=== PATIENT | male | born 1970 | race Caucasian/White ===

== ENCOUNTER 2022-05-26 15:55 | Emergency (ER) | payer SELFPAY ==
[~2022-05-26] VITALS: Ht 165.1 cm; Wt 68.0 kg
--- NOTE | 2022-05-26 16:40 | NUR ---
AKHIL Cummins PT STATED HE FELL DOWN, LOST HIS BALANCE, HE ADMITTED HE HAS BEEN DRINKING AND HAD TWO HURRICANES, HIS APPETITE HAS BEEN POOR.
--- NOTE | 2022-05-26 16:50 | NUR ---
THE PATIENT IS TAKEN TO CT VIA [facility]
[2022-05-26] MEDS ORDERED: TDAP [DIPH/PERTUSSIS/TET] 0.5 ML VIAL IM ONE ×2 (16:54→17:00)
[2022-05-26 19:34] VITALS: BP 130/90
--- NOTE | 2022-05-26 19:34 | NUR ---
Patient discharged to home in stable condition. Written and verbal after care instructions given. Patient verbalizes understanding of instruction.
== END 2022-05-26 19:34 | disposition home or self-care (01) ==
LOC: ER 15:59
DX: S00.01XA Abrasion of scalp, initial encounter (principal); S09.90XA Unspecified injury of head, initial encounter; W01.10XA Fall on same level from slipping, tripping and stumbling with subsequent striking against unspecified object, initial encounter; Y93.89 Activity, other specified; Y92.89 Other specified places as the place of occurrence of the external cause; Y99.8 Other external cause status
CPT/HCPCS: 70450-TC; 72125-TC; 90715

== ENCOUNTER 2023-09-22 06:05 | Inpatient (IN) | payer OTHER ==
[2023-09-22] VITALS (9 sets, daily range): O2SAT 92–100
[~2023-09-22] VITALS: Ht 165.1 cm; Wt 50.4 kg
[2023-09-22] MEDS ORDERED: CEFEPIME 1 GM in IV D5W 50 ML IV ONE (06:30)
[2023-09-22] MEDS ORDERED: IV NS 0.9% 1,000 ML BAG IV ONE (06:30)
[2023-09-22] MEDS ORDERED: ACETAMINOPHEN ES 500 MG TABLET GT ONE (06:30)
[2023-09-22] MEDS ORDERED: ACETAMINOPHEN ES 500 MG TABLET ONE (06:37)
[2023-09-22] MEDS ORDERED: VANCOMYCIN 1 GM /D5W 250 ML PB IV ONE (06:37)
[2023-09-22] MEDS ORDERED: CEFEPIME 1 GM VIAL ONE (06:37)
[2023-09-22] MEDS: VANCOMYCIN 1 GM in IV D5W 250 ML IV ONE ×2 (06:58→07:25)
[2023-09-22 07:05] LABS: APPEARANCE,URINE TURBID (CLEAR); BILIRUBIN,URINE NEGATIVE (NEGATIVE); BLOOD, URINE TRACE-INTA Ery/uL (NEGATIVE); COLOR,URINE DARK YELLOW (YELLOW); KETONES,URINE NEGATIVE (NEGATIVE); LEUKOCYTE ESTERASE ,URINE 2+ (NEGATIVE); NITRITE, URINE NEGATIVE (NEGATIVE); PROTEIN,URINE 2+ mg/dl (NEGATIVE); UGLUCOSE NEGATIVE (NEGATIVE)
[2023-09-22 07:07] LABS: BASOPHILS # (AUTO) 0.1 K/uL (0.0-0.2); BASOPHILS % (AUTO) 0.6 % (0.0-2.0); EOSINOPHILS % (AUTO) 0.1 % (0.0-6.0); HEMATOCRIT 28 % (39-51); HEMOGLOBIN 9.4 g/dL (13.5-17.5); LYMPHOCYTES # (AUTO) 1.7 K/uL (0.8-4.8); MEAN CORPUSCULAR HEMOGLOBIN 31 PG (26.0-33.0); MEAN CORPUSCULAR HGB CONC 33 g/dl (31.0-36.0); MEAN CORPUSCULAR VOLUME 94 fL (80-96); MONOCYTES # (AUTO) 1.6 K/uL (0.1-1.30); MONOCYTES % (AUTO) 8.7 % (2.0-12.0); NEUTROPHILS # (AUTO) 15.1 K/uL (1.8-8.9); NEUTROPHILS % (AUTO) 81.6 % (43.0-81.0); PLATELET COUNT (AUTO) 385 K/uL (150-450); RED BLOOD CELL COUNT(AUTO) 3.04 MIL/uL (4.5-6.0); RED CELL DISTRIBUTION WIDTH 17.2 % (11.5-15.0); WHITE BLOOD COUNT (AUTO) 18.6 K/uL (4.3-11.0)
[2023-09-22 07:10] LABS: CALCIUM, SERUM 8.5 mg/dL (8.5-10.1); CARBON DIOXIDE 22 mmol/L (21-32); CHLORIDE 99 mmol/L (98-107); CREATININE 0.8 mg/dL (0.6-1.3); GLUCOSE 132 mg/dL (74-106); POTASSIUM 3.8 mmol/L (3.5-5.1); SODIUM SERUM 129 mmol/L (136-145); UREA NITROGEN, BLOOD 14 mg/dL (7-18)
[2023-09-22 07:14] LABS: ADD URINE CULTURE YES; BACTERIA,URINE Few /HPF (None Seen); INR 1.51 (0.91-1.10); PARTIAL THROMBOPLASTIN TIME 37.4 SEC (24.3-34.3); PROTHROMBIN TIME 15.6 SECS (9.2-11.1); SQUAMOUS EPITHELIAL CELL,UR Rare /HPF (None Seen); WBC,URINE 21-50 /HPF (0-3)
[2023-09-22 07:17] LABS: ALANINE AMINOTRANSFERASE 23 U/L (12-78); ALBUMIN 1.6 g/dL (3.4-5.0); ALKALINE PHOSPHATASE 112 U/L (46-116); ASPARTATE AMINOTRANSFERASE 51 U/L (15-37); BILIRUBIN,DIRECT 0.2 mg/dL (0.0-0.2); BILIRUBIN,TOTAL 0.3 mg/dL (0.2-1.0); TOTAL PROTEIN, SERUM 8.2 g/dL (6.4-8.2)
[2023-09-22 07:28] LABS: LACTIC ACID 2.4 mmol/L (0.4-2.0)
[2023-09-22 07:41] LABS: ABG BASE EXCESS -5.1 mmol/L; ABG OXYGEN SATURATION 91.6 % (92.0-98.5); ABG PH 7.453 (7.350-7.450); ABG PO2 67.2 mmHg (75.0-100.0); ABG TOTAL HEMOGLOBIN 9.3 G/dL (13.5-18.0); COHb 0.2 % (0.5-1.5); MetHb 0.4 % (0.0-1.5); O2Hb 91.1 % (94.0-97.0); SITE, ABG Right Radial; VENT MODE, BG 15L NRB
[2023-09-22] MEDS ORDERED: IOHEXOL-350 100 ML VIAL IV ONE (07:48)
[2023-09-22] MEDS ORDERED: IV NS 0.9% 250 ML IV ONE (07:49)
[2023-09-22] MEDS ORDERED: LANS30CA56 GT (08:46)
[2023-09-22] MEDS ORDERED: LORA-259 GT (08:46)
[2023-09-22] MEDS ORDERED: ALBU2.5V38 IH (08:46)
[2023-09-22] MEDS ORDERED: TAMS-12 GT (08:46)
[2023-09-22] MEDS ORDERED: THIA100T74 GT (08:46)
[2023-09-22] MEDS ORDERED: ACET-868 GT (08:46)
[2023-09-22] MEDS ORDERED: SODI100037 GT (08:46)
[2023-09-22] MEDS ORDERED: ACET-2605 GT (08:46)
[2023-09-22] MEDS ORDERED: APIX5TAB GT (08:46)
[2023-09-22] MEDS ORDERED: FOLI0.8T3 GT (08:46)
[2023-09-22] MEDS ORDERED: LACT-209 GT (08:49)
[2023-09-22] MEDS ORDERED: IV NS 0.9% 1,000 ML IV ONE (09:00)
[2023-09-22 10:46] LABS: HEMOGLOBIN 9.7 g/dL (13.5-17.5)
[2023-09-22] MEDS ORDERED: methylPREDNISolone SOD SUCC 40 MG/ML VIAL ONE ×2 (11:26→23:05)
[2023-09-22] MEDS ORDERED: MAG HYDROX/AL HYDROX/SIMETH 30 ML UDC PO PRN ×2 (11:30)
[2023-09-22] MEDS ORDERED: ZOLPIDEM TARTRATE 5 MG TABLET PO PRN ×2 (11:30)
[2023-09-22] MEDS ORDERED: ENOXAPARIN SODIUM 40 MG/0.4 ML DISP.SYRIN SQ SCH (11:30)
[2023-09-22] MEDS ORDERED: MAGNESIUM HYDROXIDE 30 ML UDC PO PRN ×2 (11:30)
[2023-09-22] MEDS ORDERED: ONDANSETRON HCL/PF 4 MG/2 ML VIAL IVP PRN ×2 (11:30)
[2023-09-22] MEDS ORDERED: Z GUARD REMEDY 4 OZ OINT TP PRN ×2 (11:30)
[2023-09-22] MEDS ORDERED: ACETAMINOPHEN 325 MG TABLET PO PRN ×2 (11:30)
[2023-09-22] MEDS: PIPERACILLIN /TAZOBACTAM 3.375 G in IV D5W 50 ML IV SCH ×2 (11:34→18:07)
[2023-09-22] MEDS ORDERED: IPRATROPIUM NEB FS 0.5 MG/2.5 ML AMPUL.NEB ONE ×4 (11:37→23:44)
[2023-09-22] MEDS: IPRATROPIUM NEB FS 0.5 MG/2.5 ML AMPUL.NEB NEB SCH ×3 (11:40→19:54)
[2023-09-22] MEDS: IV D5/ 0.9% NACL 1,000 ML IV PRN (11:45)
[2023-09-22] MEDS ORDERED: IPRATROPIUM NEB FS 0.5 MG/2.5 ML AMPUL.NEB NEB SCH (13:00)
[2023-09-22] MEDS ORDERED: ALBUTEROL FS 2.5 MG/0.5 ML VIAL.NEB ONE ×4 (13:20→23:44)
[2023-09-22] MEDS: ALBUTEROL FS 2.5 MG/0.5 ML VIAL.NEB NEB SCH ×4 (13:24→23:51)
[2023-09-22] MEDS ORDERED: methylPREDNISolone SOD SUCC 40 MG/ML VIAL IV SCH (17:00)
[2023-09-22] MEDS ORDERED: CEFEPIME 2 GM in IV D5W 100 ML IV SCH (17:00)
[2023-09-22] MEDS ORDERED: CEFEPIME 1 GM in IV D5W 50 ML IV SCH (18:00)
[2023-09-22] MEDS ORDERED: ALBUTEROL FS 2.5 MG/3 ML VIAL.NEB ONE (19:52)
[2023-09-22] MEDS: VANCOMYCIN 1 GM in IV D5W 250 ML IV SCH (20:45)
[2023-09-22] MEDS: methylPREDNISolone SOD SUCC 40 MG/ML VIAL IV SCH (23:15)
[2023-09-23] VITALS (15 sets, daily range): BP systolic 129; BP diastolic 88; TEMP 97.9; O2SAT 94–100
[2023-09-23] MEDS: PIPERACILLIN /TAZOBACTAM 3.375 G in IV D5W 50 ML IV SCH ×5 (00:10→23:05)
[2023-09-23] MEDS ORDERED: ALBUTEROL FS 2.5 MG/0.5 ML VIAL.NEB ONE ×5 (04:21→22:28)
[2023-09-23] MEDS ORDERED: IPRATROPIUM NEB FS 0.5 MG/2.5 ML AMPUL.NEB ONE ×4 (04:21→19:40)
[2023-09-23] MEDS: IPRATROPIUM NEB FS 0.5 MG/2.5 ML AMPUL.NEB NEB SCH ×4 (04:24→19:44)
[2023-09-23] MEDS: ALBUTEROL FS 2.5 MG/0.5 ML VIAL.NEB NEB SCH ×6 (04:24→23:10)
[2023-09-23 06:19] LABS: ABG BASE EXCESS 0.9 mmol/L; ABG OXYGEN SATURATION 91.4 % (92.0-98.5); ABG PH 7.532 (7.350-7.450); ABG PO2 59.6 mmHg (75.0-100.0); ABG TOTAL HEMOGLOBIN 9.9 G/dL (13.5-18.0); COHb 0.2 % (0.5-1.5); MetHb 0.3 % (0.0-1.5); O2Hb 90.9 % (94.0-97.0); SITE, ABG Right Radial
[2023-09-23] MEDS ORDERED: ALBUTEROL FS 2.5 MG/3 ML VIAL.NEB ONE (08:12)
[2023-09-23] MEDS: VANCOMYCIN 1 GM in IV D5W 250 ML IV SCH ×2 (08:14→20:15)
[2023-09-23 08:17] LABS: BASOPHILS % (AUTO) 0.1 % (0.0-2.0); HEMATOCRIT 27 % (39-51); HEMOGLOBIN 8.7 g/dL (13.5-17.5); LYMPHOCYTES # (AUTO) 1.1 K/uL (0.8-4.8); MEAN CORPUSCULAR HEMOGLOBIN 31 PG (26.0-33.0); MEAN CORPUSCULAR HGB CONC 32 g/dl (31.0-36.0); MEAN CORPUSCULAR VOLUME 94 fL (80-96); MONOCYTES # (AUTO) 0.7 K/uL (0.1-1.30); MONOCYTES % (AUTO) 2.9 % (2.0-12.0); NEUTROPHILS # (AUTO) 20.4 K/uL (1.8-8.9); PLATELET COUNT (AUTO) 317 K/uL (150-450); RED BLOOD CELL COUNT(AUTO) 2.86 MIL/uL (4.5-6.0); RED CELL DISTRIBUTION WIDTH 16.3 % (11.5-15.0); WHITE BLOOD COUNT (AUTO) 22.1 K/uL (4.3-11.0)
[2023-09-23 08:34] LABS: CALCIUM, SERUM 8.6 mg/dL (8.5-10.1); CREATININE 0.6 mg/dL (0.6-1.3); MAGNESIUM 1.8 mg/dL (1.8-2.4); POTASSIUM 3.1 mmol/L (3.5-5.1)
[2023-09-23] MEDS ORDERED: PANTOPRAZOLE 40 MG VIAL ONE (09:49)
[2023-09-23] MEDS: PANTOPRAZOLE 40 MG VIAL IV SCH (09:50)
[2023-09-23] MEDS ORDERED: POTASSIUM CL. PREMIX PERIPHER. 50 ML ONE ×4 (10:33→14:14)
[2023-09-23] MEDS: POTASSIUM CL. PREMIX PERIPHER. 50 ML IV SCH ×4 (10:34→14:14)
[2023-09-23] MEDS ORDERED: methylPREDNISolone SOD SUCC 40 MG/ML VIAL ONE (11:05)
[2023-09-23] MEDS: methylPREDNISolone SOD SUCC 40 MG/ML VIAL IV SCH ×2 (11:07→23:04)
[2023-09-23] MEDS ORDERED: VANCOMYCIN 1 GM /D5W 250 ML PB IV ONE (20:16)
[2023-09-23] MEDS: IV D5/ 0.9% NACL 1,000 ML IV PRN (22:40)
[2023-09-23 22:43] LABS: HIV-1 p24 ANTIGEN NON REACTIVE (NONREACTIVE); HIV-1/2 ANTIBODY NON REACTIVE (NONREACTIVE)
[2023-09-23] MEDS ORDERED: PIPERACI/TAZO 3.375GM/D5W 50ML PB IV ONE (22:50)
[2023-09-24] VITALS (27 sets, daily range): BP systolic 101–125; BP diastolic 68–94; TEMP 97.9–98.7; O2SAT 91–100
[2023-09-24] MEDS: IPRATROPIUM NEB FS 0.5 MG/2.5 ML AMPUL.NEB NEB SCH ×6 (02:12→22:52)
[2023-09-24] MEDS: ALBUTEROL FS 2.5 MG/0.5 ML VIAL.NEB NEB SCH ×6 (03:16→22:52)
[2023-09-24] MEDS ORDERED: PIPERACI/TAZO 3.375GM/D5W 50ML PB IV ONE (04:59)
[2023-09-24] MEDS: PIPERACILLIN /TAZOBACTAM 3.375 G in IV D5W 50 ML IV SCH ×4 (05:09→23:22)
[2023-09-24 05:13] LABS: BASOPHILS % (AUTO) 0.1 % (0.0-2.0); HEMATOCRIT 27 % (39-51); HEMOGLOBIN 8.7 g/dL (13.5-17.5); LYMPHOCYTES # (AUTO) 0.6 K/uL (0.8-4.8); LYMPHOCYTES % (AUTO) 4.1 % (20.0-44.0); MEAN CORPUSCULAR HEMOGLOBIN 31 PG (26.0-33.0); MEAN CORPUSCULAR HGB CONC 33 g/dl (31.0-36.0); MEAN CORPUSCULAR VOLUME 94 fL (80-96); MONOCYTES # (AUTO) 0.6 K/uL (0.1-1.30); MONOCYTES % (AUTO) 3.6 % (2.0-12.0); NEUTROPHILS # (AUTO) 14.7 K/uL (1.8-8.9); NEUTROPHILS % (AUTO) 92.2 % (43.0-81.0); PLATELET COUNT (AUTO) 310 K/uL (150-450); RED BLOOD CELL COUNT(AUTO) 2.84 MIL/uL (4.5-6.0); WHITE BLOOD COUNT (AUTO) 15.9 K/uL (4.3-11.0)
[2023-09-24 05:16] LABS: CALCIUM, SERUM 8.6 mg/dL (8.5-10.1); CREATININE 0.5 mg/dL (0.6-1.3); MAGNESIUM 1.9 mg/dL (1.8-2.4)
[2023-09-24 05:33] LABS: THYROID STIMULATING HORMONE 2.947 uIU/mL (0.358-3.74); URIC ACID 2.1 mg/dL (2.6-7.2)
[2023-09-24 05:36] LABS: POTASSIUM 2.5 mmol/L (3.5-5.1)
[2023-09-24] MEDS: POTASSIUM CL. PREMIX PERIPHER. 50 ML IV SCH ×8 (06:06→13:08)
[2023-09-24] MEDS: VANCOMYCIN 1 GM in IV D5W 250 ML IV SCH ×2 (07:58→20:31)
[2023-09-24] MEDS: PANTOPRAZOLE 40 MG VIAL IV SCH (08:57)
[2023-09-24] MEDS: methylPREDNISolone SOD SUCC 40 MG/ML VIAL IV SCH ×2 (11:00→23:21)
[2023-09-24] MEDS: IV D5/ 0.9% NACL 1,000 ML IV PRN (11:11)
[2023-09-24 15:27] LABS: CALCIUM, SERUM 8.4 mg/dL (8.5-10.1); CREATININE 0.6 mg/dL (0.6-1.3); POTASSIUM 3.4 mmol/L (3.5-5.1)
[2023-09-24] MEDS ORDERED: VITAL AF 1.2 1,000 ML BOTTLE GT PRN (16:30)
[2023-09-24] MEDS: VITAL AF 1.2 1,000 ML BOTTLE GT PRN (17:12)
[2023-09-25] VITALS (13 sets, daily range): BP systolic 111–130; BP diastolic 41–89; TEMP 97.8–99.3; O2SAT 92–99
[2023-09-25] MEDS: IV D5/ 0.9% NACL 1,000 ML IV PRN (03:31)
[2023-09-25] MEDS: IPRATROPIUM NEB FS 0.5 MG/2.5 ML AMPUL.NEB NEB SCH ×5 (03:37→20:03)
[2023-09-25] MEDS: ALBUTEROL FS 2.5 MG/0.5 ML VIAL.NEB NEB SCH ×5 (03:37→20:03)
[2023-09-25] MEDS: PIPERACILLIN /TAZOBACTAM 3.375 G in IV D5W 50 ML IV SCH ×3 (05:50→17:01)
[2023-09-25 06:57] LABS: BASOPHILS % (AUTO) 0.1 % (0.0-2.0); HEMATOCRIT 25 % (39-51); HEMOGLOBIN 8.2 g/dL (13.5-17.5); LYMPHOCYTES # (AUTO) 0.6 K/uL (0.8-4.8); LYMPHOCYTES % (AUTO) 5.6 % (20.0-44.0); MEAN CORPUSCULAR HEMOGLOBIN 31 PG (26.0-33.0); MEAN CORPUSCULAR HGB CONC 33 g/dl (31.0-36.0); MEAN CORPUSCULAR VOLUME 94 fL (80-96); MONOCYTES # (AUTO) 0.6 K/uL (0.1-1.30); MONOCYTES % (AUTO) 6.4 % (2.0-12.0); NEUTROPHILS # (AUTO) 8.9 K/uL (1.8-8.9); NEUTROPHILS % (AUTO) 87.9 % (43.0-81.0); PLATELET COUNT (AUTO) 291 K/uL (150-450); RED BLOOD CELL COUNT(AUTO) 2.68 MIL/uL (4.5-6.0); RED CELL DISTRIBUTION WIDTH 16.3 % (11.5-15.0); WHITE BLOOD COUNT (AUTO) 10.1 K/uL (4.3-11.0)
[2023-09-25 07:10] LABS: CALCIUM, SERUM 8.4 mg/dL (8.5-10.1); CREATININE 0.6 mg/dL (0.6-1.3); MAGNESIUM 2.1 mg/dL (1.8-2.4); PHOSPHORUS 3.3 mg/dL (2.5-4.9)
[2023-09-25 07:39] LABS: POTASSIUM 2.8 mmol/L (3.5-5.1)
[2023-09-25] MEDS: VANCOMYCIN 1 GM in IV D5W 250 ML IV SCH ×2 (08:12→20:15)
[2023-09-25] MEDS: PANTOPRAZOLE 40 MG VIAL IV SCH (08:22)
[2023-09-25] MEDS: POTASSIUM CHLORIDE 20 MEQ POWDER PACKET GT SCH ×3 (08:23→16:15)
[2023-09-25] MEDS: methylPREDNISolone SOD SUCC 40 MG/ML VIAL IV SCH (10:37)
[2023-09-26] VITALS (15 sets, daily range): BP systolic 105–129; BP diastolic 50–84; TEMP 98–99; O2SAT 94–99
[2023-09-26] MEDS: PIPERACILLIN /TAZOBACTAM 3.375 G in IV D5W 50 ML IV SCH ×2 (00:09→06:56)
[2023-09-26] MEDS: IPRATROPIUM NEB FS 0.5 MG/2.5 ML AMPUL.NEB NEB SCH ×7 (03:26→23:30)
[2023-09-26] MEDS: ALBUTEROL FS 2.5 MG/0.5 ML VIAL.NEB NEB SCH ×7 (03:26→23:30)
[2023-09-26 06:43] LABS: BASOPHILS % (AUTO) 0.3 % (0.0-2.0); EOSINOPHILS % (AUTO) 0.1 % (0.0-6.0); HEMATOCRIT 28 % (39-51); HEMOGLOBIN 9.1 g/dL (13.5-17.5); LYMPHOCYTES # (AUTO) 1.5 K/uL (0.8-4.8); LYMPHOCYTES % (AUTO) 12.3 % (20.0-44.0); MEAN CORPUSCULAR HEMOGLOBIN 31 PG (26.0-33.0); MEAN CORPUSCULAR HGB CONC 33 g/dl (31.0-36.0); MEAN CORPUSCULAR VOLUME 94 fL (80-96); MONOCYTES # (AUTO) 1.4 K/uL (0.1-1.30); MONOCYTES % (AUTO) 11.4 % (2.0-12.0); NEUTROPHILS # (AUTO) 9.3 K/uL (1.8-8.9); NEUTROPHILS % (AUTO) 75.9 % (43.0-81.0); PLATELET COUNT (AUTO) 284 K/uL (150-450); RED BLOOD CELL COUNT(AUTO) 2.95 MIL/uL (4.5-6.0); RED CELL DISTRIBUTION WIDTH 15.8 % (11.5-15.0); WHITE BLOOD COUNT (AUTO) 12.2 K/uL (4.3-11.0)
[2023-09-26 07:07] LABS: CALCIUM, SERUM 8.5 mg/dL (8.5-10.1); CREATININE 0.5 mg/dL (0.6-1.3); MAGNESIUM 1.9 mg/dL (1.8-2.4); PHOSPHORUS 2.4 mg/dL (2.5-4.9); POTASSIUM 3.3 mmol/L (3.5-5.1)
[2023-09-26] MEDS: VANCOMYCIN 1 GM in IV D5W 250 ML IV SCH (08:47)
[2023-09-26] MEDS: PANTOPRAZOLE 40 MG/PACK PACK NG SCH (08:48)
[2023-09-26] MEDS: VITAL AF 1.2 1,000 ML BOTTLE GT PRN (08:58)
[2023-09-26] MEDS ORDERED: methylPREDNISolone SOD SUCC 40 MG/ML VIAL IV SCH (09:00)
[2023-09-26] MEDS ORDERED: POTASSIUM CHLORIDE 20 MEQ POWDER PACKET GT ONE (10:00)
[2023-09-26] MEDS: predniSONE 20 MG TABLET PO SCH (10:46)
[2023-09-26] MEDS: PIPERACILLIN /TAZOBACTAM 3.375 G in IV D5W 100 ML IV SCH ×2 (13:09→21:13)
[2023-09-26] MEDS ORDERED: NEUTRA PHOS 1 POWD.PACKET GT ONE (16:00)
[2023-09-26] MEDS: CLOTRIMAZOLE/BETAMETASONE DIPROPIONATE 15 GM TUBE TP SCH (16:15)
[2023-09-27] VITALS (12 sets, daily range): BP systolic 98–128; BP diastolic 76–82; TEMP 97.8–99; O2SAT 94–100
[2023-09-27] MEDS: IPRATROPIUM NEB FS 0.5 MG/2.5 ML AMPUL.NEB NEB SCH ×4 (04:22→15:06)
[2023-09-27] MEDS: ALBUTEROL FS 2.5 MG/0.5 ML VIAL.NEB NEB SCH ×4 (04:22→15:06)
[2023-09-27] MEDS: PIPERACILLIN /TAZOBACTAM 3.375 G in IV D5W 100 ML IV SCH ×2 (05:10→13:50)
[2023-09-27] MEDS: VITAL AF 1.2 1,000 ML BOTTLE GT PRN (05:17)
[2023-09-27 06:56] LABS: BASOPHILS % (AUTO) 0.1 % (0.0-2.0); EOSINOPHILS % (AUTO) 0.1 % (0.0-6.0); HEMATOCRIT 28 % (39-51); LYMPHOCYTES # (AUTO) 1.3 K/uL (0.8-4.8); LYMPHOCYTES % (AUTO) 9.7 % (20.0-44.0); MEAN CORPUSCULAR HEMOGLOBIN 30 PG (26.0-33.0); MEAN CORPUSCULAR HGB CONC 32 g/dl (31.0-36.0); MEAN CORPUSCULAR VOLUME 94 fL (80-96); MONOCYTES # (AUTO) 1.6 K/uL (0.1-1.30); MONOCYTES % (AUTO) 11.4 % (2.0-12.0); NEUTROPHILS # (AUTO) 10.9 K/uL (1.8-8.9); NEUTROPHILS % (AUTO) 78.7 % (43.0-81.0); PLATELET COUNT (AUTO) 298 K/uL (150-450); RED BLOOD CELL COUNT(AUTO) 2.99 MIL/uL (4.5-6.0); RED CELL DISTRIBUTION WIDTH 16.2 % (11.5-15.0); WHITE BLOOD COUNT (AUTO) 13.8 K/uL (4.3-11.0)
[2023-09-27 07:08] LABS: CALCIUM, SERUM 8.6 mg/dL (8.5-10.1); CREATININE 0.6 mg/dL (0.6-1.3); MAGNESIUM 1.9 mg/dL (1.8-2.4); PHOSPHORUS 3.6 mg/dL (2.5-4.9)
[2023-09-27 07:36] LABS: POTASSIUM 2.6 mmol/L (3.5-5.1)
[2023-09-27] MEDS ORDERED: POTASSIUM CHLORIDE 20 MEQ POWDER PACKET GT ONE ×3 (09:30→18:00)
[2023-09-27] MEDS ORDERED: Magnesium 1GM/D5W 100ML PREMIX PIGGYBACK IV ONE (09:30)
[2023-09-27] MEDS ORDERED: Magnesium 1GM/D5W 100ML PREMIX 100 ML IV SCH (09:30)
[2023-09-27] MEDS: PANTOPRAZOLE 40 MG/PACK PACK NG SCH (09:58)
[2023-09-27] MEDS: predniSONE 20 MG TABLET PO SCH (09:58)
[2023-09-27] MEDS: CLOTRIMAZOLE/BETAMETASONE DIPROPIONATE 15 GM TUBE TP SCH ×2 (10:03→16:59)
== END 2023-09-27 19:40 | DRG 720 ==
LOC: ER 06:10 → TRANSITION 11:22 → TELE1 09-23 10:29 → ICU 09-23 21:42 → TELE 09-24 16:35
PROVIDERS: ADMIT Nurse Practitioner Acute Care; ATTEND Nurse Practitioner Acute Care
PROC: 05H633Z Insertion of Infusion Device into Left Subclavian Vein, Percutaneous Approach (ICD-10-PCS; principal; 2023-09-24)
PROC: B547ZZA Ultrasonography of Left Subclavian Vein, Guidance (ICD-10-PCS; 2023-09-24)
DX: A41.9 Sepsis, unspecified organism (principal); J96.01 Acute respiratory failure with hypoxia; J69.0 Pneumonitis due to inhalation of food and vomit; G93.41 Metabolic encephalopathy; E43 Unspecified severe protein-calorie malnutrition; D68.4 Acquired coagulation factor deficiency; E87.1 Hypo-osmolality and hyponatremia; L89.616 Pressure-induced deep tissue damage of right heel; L89.626 Pressure-induced deep tissue damage of left heel; K70.30 Alcoholic cirrhosis of liver without ascites; L89.156 Pressure-induced deep tissue damage of sacral region; E86.0 Dehydration; D64.9 Anemia, unspecified; E87.6 Hypokalemia; I25.10 Atherosclerotic heart disease of native coronary artery without angina pectoris; R13.10 Dysphagia, unspecified; J45.909 Unspecified asthma, uncomplicated; I25.2 Old myocardial infarction; K21.9 Gastro-esophageal reflux disease without esophagitis; L30.4 Erythema intertrigo; R65.20 Severe sepsis without septic shock; N39.0 Urinary tract infection, site not specified; Z93.1 Gastrostomy status; Z79.01 Long term (current) use of anticoagulants; Z86.711 Personal history of pulmonary embolism; Z74.01 Bed confinement status; Z87.440 Personal history of urinary (tract) infections; F41.9 Anxiety disorder, unspecified; E86.9 Volume depletion, unspecified; N40.1 Benign prostatic hyperplasia with lower urinary tract symptoms; I95.9 Hypotension, unspecified; Z68.1 Body mass index [BMI] 19.9 or less, adult; B95.2 Enterococcus as the cause of diseases classified elsewhere
CPT/HCPCS: 36410; 36415; 36600; 71045-TC; 80048-TC; 80061-TC; 80076-TC; 80202-TC; 81001; 82803-TC; 82962-TC; 83605-TC; 83735-TC; 84100-TC; 84443-TC; 84484-TC; 84550-TC; 85025-TC; 85027-TC; 85730-TC; 86803; 87040-TC; 87081-TC; 87086-TC; 87806; 94799-TC; 97110-TC; 97530-TC; 99082-TC; A4223; A6403; C9113; C9803; G0378; J0692; J2543; J2920; J3370; J3475; J3480; J7030; J7040; J7042; J7050; J7060; Q9967

== ENCOUNTER 2023-10-11 07:49 | Inpatient (IN) | payer OTHER ==
[~2023-10-11] VITALS: Ht 165.1 cm; Wt 54.4 kg
[~2023-10-11 07:49] MED LIST: ACET-2605 GT; ACET-868 GT; ALBU2.5V38 IH; FOLI0.8T3 GT; LACT-209 GT; LANS30CA56 GT; LORA-259 GT; SODI100037 GT; TAMS-12 GT; THIA100T74 GT
[2023-10-11 09:04] LABS: BASOPHILS # (AUTO) 0.1 K/uL (0.0-0.2); BASOPHILS % (AUTO) 1.3 % (0.0-2.0); EOSINOPHILS # (AUTO) 0.1 K/uL (0.0-0.7); EOSINOPHILS % (AUTO) 1.9 % (0.0-6.0); HEMATOCRIT 33 % (39-51); HEMOGLOBIN 10.9 g/dL (13.5-17.5); LYMPHOCYTES # (AUTO) 1.8 K/uL (0.8-4.8); MEAN CORPUSCULAR HEMOGLOBIN 30 PG (26.0-33.0); MEAN CORPUSCULAR HGB CONC 33 g/dl (31.0-36.0); MEAN CORPUSCULAR VOLUME 92 fL (80-96); MONOCYTES # (AUTO) 0.6 K/uL (0.1-1.30); MONOCYTES % (AUTO) 9.1 % (2.0-12.0); NEUTROPHILS # (AUTO) 4.3 K/uL (1.8-8.9); NEUTROPHILS % (AUTO) 61.7 % (43.0-81.0); PLATELET COUNT (AUTO) 219 K/uL (150-450); RED BLOOD CELL COUNT(AUTO) 3.59 MIL/uL (4.5-6.0); RED CELL DISTRIBUTION WIDTH 16.6 % (11.5-15.0)
[2023-10-11 09:16] LABS: INR 1.01 (0.91-1.10); PARTIAL THROMBOPLASTIN TIME 31.3 SEC (24.3-34.3); PROTHROMBIN TIME 10.7 SECS (9.2-11.1)
[2023-10-11 09:17] LABS: CALCIUM, SERUM 9.9 mg/dL (8.5-10.1); CREATININE 0.5 mg/dL (0.6-1.3); POTASSIUM 3.6 mmol/L (3.5-5.1)
[2023-10-11] MEDS ORDERED: APIX5TAB GT (10:32)
[2023-10-11] MEDS ORDERED: ARGI1POW13 GT (10:32)
[2023-10-11] MEDS ORDERED: MULT-213 GT (10:32)
[2023-10-11] MEDS ORDERED: ACET-2605 GT (10:32)
[2023-10-11] MEDS ORDERED: MAGN400O6 GT (10:32)
[2023-10-11] MEDS ORDERED: AMIN30LI66 GT (10:32)
[2023-10-11] MEDS ORDERED: BISA10SU11 RC (10:32)
[2023-10-11] MEDS ORDERED: ZINC50TA65 GT (10:32)
[2023-10-11] MEDS ORDERED: ASCO-340 GT (10:32)
[2023-10-11] MEDS ORDERED: CRAN425C6 GT (10:32)
[2023-10-11] MEDS ORDERED: NA P133E RC (10:32)
[2023-10-11] MEDS ORDERED: DOCU100T2 GT (10:32)
[2023-10-11] MEDS ORDERED: LORAZEPAM INJ 2 MG/ML VIAL IV PRN (11:30)
[2023-10-11] MEDS ORDERED: MORPHINE SULFATE INJ 2 MG/ML DISP.SYRIN IV PRN (11:30)
[2023-10-11] MEDS ORDERED: ONDANSETRON HCL/PF 4 MG/2 ML VIAL IVP PRN (11:30)
[2023-10-11] MEDS ORDERED: Z GUARD REMEDY 4 OZ OINT TP PRN (11:30)
[2023-10-11] MEDS: IV D5/ 0.9% NACL 1,000 ML IV PRN (15:40)
[2023-10-11 15:51] VITALS: BP 100/82; TEMP 99.1; O2SAT 100
[2023-10-12] MEDS: IV D5/ 0.9% NACL 1,000 ML IV PRN (07:05)
[2023-10-12 08:01] LABS: BASOPHILS # (AUTO) 0.1 K/uL (0.0-0.2); BASOPHILS % (AUTO) 1.1 % (0.0-2.0); EOSINOPHILS # (AUTO) 0.2 K/uL (0.0-0.7); EOSINOPHILS % (AUTO) 3.2 % (0.0-6.0); HEMATOCRIT 30 % (39-51); HEMOGLOBIN 10.2 g/dL (13.5-17.5); LYMPHOCYTES # (AUTO) 1.7 K/uL (0.8-4.8); LYMPHOCYTES % (AUTO) 30.8 % (20.0-44.0); MEAN CORPUSCULAR HEMOGLOBIN 30 PG (26.0-33.0); MEAN CORPUSCULAR HGB CONC 34 g/dl (31.0-36.0); MEAN CORPUSCULAR VOLUME 91 fL (80-96); MONOCYTES # (AUTO) 0.6 K/uL (0.1-1.30); MONOCYTES % (AUTO) 10.5 % (2.0-12.0); NEUTROPHILS % (AUTO) 54.4 % (43.0-81.0); PLATELET COUNT (AUTO) 210 K/uL (150-450); RED BLOOD CELL COUNT(AUTO) 3.36 MIL/uL (4.5-6.0); RED CELL DISTRIBUTION WIDTH 16.1 % (11.5-15.0); WHITE BLOOD COUNT (AUTO) 5.6 K/uL (4.3-11.0)
[2023-10-12 08:40] LABS: CALCIUM, SERUM 9.5 mg/dL (8.5-10.1); CREATININE 0.5 mg/dL (0.6-1.3); PHOSPHORUS 5.4 mg/dL (2.5-4.9); POTASSIUM 3.3 mmol/L (3.5-5.1)
[2023-10-12] MEDS: PANTOPRAZOLE 40 MG VIAL IV SCH (09:12)
[2023-10-12] MEDS: THERAHONEY GEL 1.5 OZ TUBE TP SCH (09:30)
[2023-10-12] MEDS: HEPARIN SODIUM, PORCINE 5000 UNITS/1 ML VIAL SQ SCH ×2 (11:19→22:41)
[2023-10-12] MEDS: POTASSIUM CL. PREMIX PERIPHER. 50 ML IV SCH ×4 (11:21→14:48)
[2023-10-12 18:51] VITALS: BP 130/88; TEMP 98.2; O2SAT 100
[2023-10-12 20:00] VITALS: BP 105/71; TEMP 97.5; O2SAT 100
[2023-10-13] MEDS: IV D5/ 0.9% NACL 1,000 ML IV PRN ×3 (02:22→18:25)
[2023-10-13] MEDS: PANTOPRAZOLE 40 MG VIAL IV SCH (08:28)
[2023-10-13] MEDS: HEPARIN SODIUM, PORCINE 5000 UNITS/1 ML VIAL SQ SCH ×2 (08:29→22:27)
[2023-10-13] MEDS: THERAHONEY GEL 1.5 OZ TUBE TP SCH (08:30)
[2023-10-13 09:38] VITALS: BP 91/81; TEMP 98.2; O2SAT 99
[2023-10-13 11:49] LABS: BASOPHILS # (AUTO) 0.1 K/uL (0.0-0.2); BASOPHILS % (AUTO) 0.5 % (0.0-2.0); EOSINOPHILS # (AUTO) 0.1 K/uL (0.0-0.7); EOSINOPHILS % (AUTO) 0.5 % (0.0-6.0); HEMATOCRIT 33 % (39-51); HEMOGLOBIN 10.7 g/dL (13.5-17.5); LYMPHOCYTES # (AUTO) 1.3 K/uL (0.8-4.8); LYMPHOCYTES % (AUTO) 8.9 % (20.0-44.0); MEAN CORPUSCULAR HEMOGLOBIN 30 PG (26.0-33.0); MEAN CORPUSCULAR HGB CONC 33 g/dl (31.0-36.0); MEAN CORPUSCULAR VOLUME 92 fL (80-96); MONOCYTES # (AUTO) 0.9 K/uL (0.1-1.30); MONOCYTES % (AUTO) 6.2 % (2.0-12.0); NEUTROPHILS # (AUTO) 12.1 K/uL (1.8-8.9); NEUTROPHILS % (AUTO) 83.9 % (43.0-81.0); PLATELET COUNT (AUTO) 201 K/uL (150-450); RED BLOOD CELL COUNT(AUTO) 3.55 MIL/uL (4.5-6.0); RED CELL DISTRIBUTION WIDTH 16.3 % (11.5-15.0); WHITE BLOOD COUNT (AUTO) 14.4 K/uL (4.3-11.0)
[2023-10-13 12:01] LABS: INR 1.21 (0.91-1.10); PROTHROMBIN TIME 12.7 SECS (9.2-11.1)
[2023-10-13 13:17] LABS: CALCIUM, SERUM 9.5 mg/dL (8.5-10.1); CREATININE 0.7 mg/dL (0.6-1.3); POTASSIUM 3.4 mmol/L (3.5-5.1)
[2023-10-13 13:23] LABS: ALBUMIN 2.4 g/dL (3.4-5.0); BILIRUBIN,TOTAL 0.4 mg/dL (0.2-1.0); TOTAL PROTEIN, SERUM 7.4 g/dL (6.4-8.2)
[2023-10-13 20:00] VITALS: BP 98/78; TEMP 99.3; O2SAT 100
[2023-10-14 07:00] VITALS: BP 111/86; TEMP 99; O2SAT 100
[2023-10-14] MEDS: HEPARIN SODIUM, PORCINE 5000 UNITS/1 ML VIAL SQ SCH ×2 (08:29→21:26)
[2023-10-14] MEDS: IV D5/ 0.9% NACL 1,000 ML IV PRN (08:36)
[2023-10-14] MEDS: THERAHONEY GEL 1.5 OZ TUBE TP SCH (08:36)
[2023-10-14] MEDS: PANTOPRAZOLE 40 MG VIAL IV SCH (08:36)
[2023-10-14 11:30] VITALS: BP 124/86; TEMP 98.4; O2SAT 100
[2023-10-14] MEDS: VITAMINS A AND D 56.7 GM TUBE TP SCH ×2 (12:26→16:17)
[2023-10-14 16:00] VITALS: BP 121/86; TEMP 98.8; O2SAT 96
[2023-10-14 20:00] VITALS: BP 129/88; TEMP 99.3; O2SAT 98
[2023-10-14 21:09] VITALS: BP 129/88; TEMP 99.3; O2SAT 99
[2023-10-15] MEDS: IV D5/ 0.9% NACL 1,000 ML IV PRN (00:04)
[2023-10-15 08:00] VITALS: BP 127/93; TEMP 98.2; O2SAT 99
[2023-10-15] MEDS: HEPARIN SODIUM, PORCINE 5000 UNITS/1 ML VIAL SQ SCH (09:22)
[2023-10-15] MEDS: PANTOPRAZOLE 40 MG VIAL IV SCH (09:24)
[2023-10-15] MEDS ORDERED: ALBUTEROL FS 2.5 MG/3 ML VIAL.NEB IH PRN (09:30)
[2023-10-15] MEDS ORDERED: THIAMINE HCL 100 MG TABLET GT SCH (09:30)
[2023-10-15] MEDS ORDERED: BISACODYL SUPP (10 MG) 10 MG/SUPP.RECT SUPP.RECT RC PRN (09:30)
[2023-10-15] MEDS ORDERED: NA PHOS,M-B/NA PHOS,DI-BA 1 EA ENEMA RC PRN (09:30)
[2023-10-15] MEDS ORDERED: TAMSULOSIN 0.4 MG CAP.SR.24H GT SCH ×2 (09:30→22:00)
[2023-10-15] MEDS ORDERED: PROSOURCE / PROSTAT (PYXIS) 30 ML UDC GT SCH (09:30)
[2023-10-15] MEDS ORDERED: MAGNESIUM HYDROXIDE 30 ML UDC GT PRN (09:30)
[2023-10-15] MEDS ORDERED: ZINC SULFATE 220 MG CAPSULE GT SCH (09:30)
[2023-10-15] MEDS ORDERED: ASCORBIC ACID 500 MG TABLET GT SCH (09:31)
[2023-10-15] MEDS: VITAMINS A AND D 56.7 GM TUBE TP SCH ×2 (09:34→17:41)
[2023-10-15] MEDS: THERAHONEY GEL 1.5 OZ TUBE TP SCH (09:34)
[2023-10-15] MEDS ORDERED: MULTIVITAMINS,THERAGRAN 1 UDTAB TABLET GT SCH (09:34)
[2023-10-15] MEDS ORDERED: ACETAMINOPHEN 650 MG/20.3 ML UDC GT PRN ×2 (10:00)
[2023-10-15] MEDS ORDERED: VITAL AF 1.2 1,000 ML BOTTLE GT PRN ×2 (10:00)
[2023-10-15] MEDS ORDERED: VITAL AF 1.2 1,000 ML BOTTLE GT SCH ×2 (10:00)
[2023-10-15 16:00] VITALS: BP 139/85; TEMP 97.9; O2SAT 99
[2023-10-15] MEDS ORDERED: APIXABAN 5 MG TABLET GT SCH (17:00)
[2023-10-16] MEDS ORDERED: DOCUSATE SODIUM LIQ 100 MG/10 ML UDC NG SCH (09:00)
[2023-10-16] MEDS ORDERED: ACETAMINOPHEN 650 MG/20.3 ML UDC GT SCH (09:00)
[2023-10-16] MEDS ORDERED: FOLIC ACID 1 MG TABLET GT SCH (09:00)
[2023-10-16] MEDS ORDERED: PANTOPRAZOLE 40 MG/PACK PACK GT SCH (09:00)
== END 2023-10-15 20:00 | DRG 252 ==
LOC: ER 07:53 → MED 14:46
PROVIDERS: ADMIT Nurse Practitioner Acute Care; ATTEND Nurse Practitioner Acute Care
PROC: 0DH63UZ Insertion of Feeding Device into Stomach, Percutaneous Approach (ICD-10-PCS; principal; 2023-10-14)
DX: K94.23 Gastrostomy malfunction (principal); G93.41 Metabolic encephalopathy; L89.153 Pressure ulcer of sacral region, stage 3; L89.626 Pressure-induced deep tissue damage of left heel; L89.616 Pressure-induced deep tissue damage of right heel; K70.30 Alcoholic cirrhosis of liver without ascites; E87.6 Hypokalemia; J45.909 Unspecified asthma, uncomplicated; K21.9 Gastro-esophageal reflux disease without esophagitis; K29.70 Gastritis, unspecified, without bleeding; L85.3 Xerosis cutis; N40.0 Benign prostatic hyperplasia without lower urinary tract symptoms; R13.10 Dysphagia, unspecified; Z74.01 Bed confinement status; Z79.01 Long term (current) use of anticoagulants; Z86.711 Personal history of pulmonary embolism; Z87.01 Personal history of pneumonia (recurrent); S81.001A Unspecified open wound, right knee, initial encounter; X58.XXXA Exposure to other specified factors, initial encounter; Y93.9 Activity, unspecified; Y92.129 Unspecified place in nursing home as the place of occurrence of the external cause; Z20.822 Contact with and (suspected) exposure to COVID-19
CPT/HCPCS: 36415; 43246; 71045-TC; 80048-TC; 80053-TC; 83735-TC; 84100-TC; 85025-TC; 85610-TC; 85730-TC; 86850-TC; 87081-TC; A4223; C9113; G0378; J1644; J2270; J2704; J3480; J3490; J7030; J7042